=== PATIENT | male | born 1990 | race American Indian/Alaskan Native ===

== ENCOUNTER 2025-01-06 05:35 | Emergency (ER) | payer OTHER | END 2025-01-06 06:56 | disposition home or self-care (01) | LOC: MW.ED 05:35 | DX: M79.641 Pain in right hand (principal) | CPT/HCPCS: 73130-26-RT; 73130-RT; 99283 ==

== ENCOUNTER 2025-04-24 08:18 | Emergency (ER) | payer OTHER | END 2025-04-24 09:48 | disposition home or self-care (01) | LOC: MW.ED 08:18 | DX: J18.9 Pneumonia, unspecified organism (principal); F17.290 Nicotine dependence, other tobacco product, uncomplicated | CPT/HCPCS: 71046; 99284; J8540; 99283 ==